=== PATIENT | male | born 1980 | race Caucasian/White ===

== ENCOUNTER 2019-09-14 15:18 | Emergency (ER) | payer SELFPAY ==
--- NOTE | 2019-09-14 16:04 | RAD REPORT ---
EXAM DESCRIPTION: RAD - Chest Pa And Lat (2 Views) - 09/14/2019 3:59 pm CLINICAL HISTORY: COUGH Chest pain. COMPARISON: No comparisons FINDINGS: The lungs are clear. The heart is normal in size. No displaced fractures. IMPRESSION: No acute or concerning finding suspected.
[2019-09-14 16:07] LABS: Absolute Lymphocytes (CBC) 1.6 K/uL (0.7-4.9); Basophils % 0.9 % (0-1.3); Hematocrit 40.2 % (39.6-49.0); Lymphocytes % 31.4 % (15.3-44.8); MPV 9.6 fL (7.6-11.3); RBC Red Blood Cell Count 4.28 M/uL (4.33-5.43)
[2019-09-14 16:10] LABS: Protime INR 0.97
[2019-09-14 16:34] LABS: ALT/SGPT 112 U/L (12-78); AST/SGOT 83 U/L (15-37); Albumin 3.4 g/dL (3.4-5.0); Alkaline Phosphatase 44 U/L (45-117); BUN Blood Urea Nitrogen 13 mg/dL (7-18); Bicarbonate 27 mmol/L (21-32); Bilirubin Direct 0.3 mg/dL (0-0.2); Bilirubin Total 0.8 mg/dL (0.2-1.0); Glucose Level 120 mg/dL (74-106); Potassium 3.5 mmol/L (3.5-5.1); Protein, Total 8.1 g/dL (6.4-8.2); Sodium Level 137 mmol/L (136-145)
[2019-09-14 16:59] LABS: Barbiturates NEGATIVE (NEGATIVE); Benzodiazepines NEGATIVE (NEGATIVE); Cocaine NEGATIVE (NEGATIVE); METHAMPHETAM POSITIVE (NEGATIVE); Methadone NEGATIVE (NEGATIVE); Opiates NEGATIVE (NEGATIVE); Phencyclidine NEGATIVE (NEGATIVE); THC Cannibis NEGATIVE (NEGATIVE)
--- NOTE | 2019-09-14 17:20 | ER ---
Nurse's Notes [facility] Name: Too Wick Age: 39 yrs Sex: Male : 1980 Arrival Date: 09/14/2019 Time: 15:21 Bed 30 Private MD: Diagnosis: Alcohol abuse;Methamphetamine use Presentation: 09/13 15:23 Chief complaint: Patient states: Been in Rehab for alcohol addiction, got out about a ca1 month ago. Last night drank, 3 swigs of whisky, reports hallucination. Sister states, "He said he called the seam feller and talked to them in person, but there were no seam feller". Also reports cough and congestion for couple of weeks. Denies fever. Coronavirus screen: The patient has NOT traveled to a country currently being monitored by the CDC within the last 14 days. The patient has NOT had contact with any known and/or suspected case of coronavirus. Ebola Screen: Patient negative for fever greater than or equal to 101.5 degrees Fahrenheit, and additional compatible Ebola Virus Disease symptoms Patient denies exposure to infectious person. Patient denies travel to an Ebola-affected area in the 21 days before illness onset. No symptoms or risks identified at this time. Initial Sepsis Screen: Does the patient meet any 2 criteria? No. Patient's initial sepsis screen is negative. Initial Sepsis Screen: Does the patient have a suspected source of infection? No. Patient's initial sepsis screen is negative. Risk Assessment: Do you want to hurt yourself or someone else? Patient reports no desire to harm self or others. Onset of symptoms was September 13, 2019. 15:23 Method Of Arrival: Ambulatory ca1 15:23 Acuity: SHAUNA 3 ca1 Triage Assessment: 15:33 General: Appears. ll1 Historical: - Allergies: 15:29 No Known Allergies; ca1 - Home Meds: 15:29 None [Active]; ca1 - PMHx: 15:29 None; ca1 - PSHx: 15:29 None; ca1 - Immunization history:: Adult Immunizations not up to date, Flu vaccine is not up to date. - Social history:: Smoking status: Patient reports the use of cigarette tobacco products, smokes one pack cigarettes per day. Screenin:32 Abuse screen: Denies threats or abuse. Nutritional screening: No deficits noted. ll1 Tuberculosis screening: No symptoms or risk factors identified. Fall Risk Secondary diagnosis (15 points) impaired mobility, Ambulatory Aid- None/Bed Rest/Nurse Assist (0 pts). Gait- Normal/Bed Rest/Wheelchair (0 pts) Total [place]leton Fall Scale indicates No Risk (0-24 pts). Assessment: 15:47 General: Appears in no apparent distress. Behavior is calm, cooperative. General: Was ll1 in rehab, got out and started to drink whiskey (3 shots). Family member reports hallucination, talking to people that weren't there. No hallucinations at this time. Calm, cooperative.. Pain: Denies pain. Neuro: No deficits noted. Cardiovascular: No deficits noted. Respiratory: Reports cough that is dry, Airway is patent Trachea midline Respiratory effort is even, unlabored, Respiratory pattern is regular, symmetrical, Breath sounds are clear bilaterally. Onset: The symptoms/episode began/occurred 2 weeks. GI: No deficits noted. : No deficits noted. 16:45 Reassessment: No changes from previously documented assessment. Patient and/or family ll1 updated on plan of care and expected duration. Pain level reassessed. Patient is alert, oriented x 3, equal unlabored respirations, skin warm/dry/pink. Vital Signs: 15:23 BP 121 / 80; Pulse 87; Resp 16 S; Temp 97.3(TE); Pulse Ox 95% on R/A; Weight 81.65 kg ca1 (R); Height 5 ft. 7 in. (170.18 cm) (R); Pain 0/10; 17:23 BP 117 / 81; Pulse 86; Resp 18; Temp 97.3; Pulse Ox 100% ; Pain 0/10; ll1 15:23 Body Mass Index 28.19 (81.65 kg, 170.18 cm) ca1 ED Course: 15:21 Patient arrived in ED. rg4 15:29 Triage completed. ca1 15:29 Arm band placed on right wrist. ca1 15:31 Kacy Rosen, SARIAH is Primary Nurse. ll1 15:31 Amilcar Espana PA is PHCP. cp 15:32 Amilcar Andersen MD is Attending Physician. cp 15:32 Patient has correct armband on for positive identification. ll1 15:35 No provider procedures requiring assistance completed. ll1 15:50 Initial lab(s) drawn, by me, sent to lab. Inserted saline lock: 20 gauge in left tm3 antecubital area, using aseptic technique. 15:59 XRAY Chest Pa And Lat (2 Views) In Process Unspecified. EDMS 17:34 IV discontinued, intact, bleeding controlled, No redness/swelling at site. Pressure ll1 dressing applied. Administered Medications: No medications were administered Outcome: 17:20 Discharge ordered by MD. michaela 17:24 Discharged to home ambulatory, with family. ll1 17:24 Condition: good 17:24 Discharge instructions given to patient, Instructed on discharge instructions, follow up and referral plans. Demonstrated understanding of instructions, follow-up care. 17:35 Patient left the ED. ll1 Signatures: Dispatcher [employer] EDMS Arsen Espinosai tm3 Amilcar Espana PA PA Abby Pinon rg4 Vi Stephenson, RN RN ca1 Kacy Rosen RN RN ll1
--- NOTE | 2019-09-14 17:20 | EDPHYS ---
Physician Documentation [facility] Name: Too Wick Age: 39 yrs Sex: Male : 1980 Arrival Date: 09/14/2019 Time: 15:21 Bed 30 Private MD: ED Physician Amilcar Andersen HPI: 09/13 15:45 This 39 yrs old Male presents to ER via Ambulatory with complaints of Alcohol cp Withdrawal, Cough. 15:45 The patient presents to the emergency department with psychosis, has experienced visual cp hallucinations, a history of substance abuse, Type: whisky. 15:45 Onset: The symptoms/episode began/occurred yesterday. Past psychiatric history: Prior cp diagnosis: addiction history, alcohol, Psychiatric medications include: none. Associated signs and symptoms: Pertinent positives; substance abuse, Pertinent negatives: abdominal pain, chest pain, headache, homicidal ideation, palpitations, suicide ideation, active hallucinations. Admits to using methamphetamine 4 days ago. 15:45 Patient also c/o cough, chest congestion for the past month. No fevers recorded. cp Historical: - Allergies: 15:29 No Known Allergies; ca1 - Home Meds: 15:29 None [Active]; ca1 - PMHx: 15:29 None; ca1 - PSHx: 15:29 None; ca1 - Immunization history:: Adult Immunizations not up to date, Flu vaccine is not up to date. - Social history:: Smoking status: Patient reports the use of cigarette tobacco products, smokes one pack cigarettes per day. ROS: 15:50 Constitutional: Negative for body aches, chills, fever, poor PO intake. cp 15:50 Eyes: Negative for injury, pain, redness, and discharge. cp 15:50 ENT: Negative for drainage from ear(s), ear pain, sore throat, difficulty swallowing, cp difficulty handling secretions. 15:50 Cardiovascular: Negative for chest pain, edema, palpitations. 15:50 Respiratory: Positive for cough, "sounds productive", Negative for shortness of breath, wheezing. 15:50 Abdomen/GI: Negative for abdominal pain, nausea, vomiting, and diarrhea, constipation, black/tarry stool, rectal bleeding. 15:50 Neuro: Negative for altered mental status, dizziness, gait disturbance, headache, seizure activity, weakness. 15:50 Psych: Positive for alcohol dependence, Negative for auditory hallucinations, visual hallucinations, homicidal ideation, suicide gesture, suicidal ideation. 15:50 : Negative for urinary symptoms. cp 15:50 Skin: Negative for rash. 15:50 All other systems are negative. Exam: 15:55 Constitutional: The patient appears in no acute distress, alert, awake, cp non-diaphoretic, non-toxic, well developed, well nourished. 15:55 Head/Face: Normocephalic, atraumatic. cp 15:55 Eyes: Pupils equal round and reactive to light, extra-ocular motions intact. Lids and cp lashes normal. Conjunctiva and sclera are non-icteric and not injected. Cornea within normal limits. Periorbital areas with no swelling, redness, or edema. ENT: Nares patent. No nasal discharge, no septal abnormalities noted. Tympanic membranes are normal and external auditory canals are clear. Oropharynx with no redness, swelling, or masses, exudates, or evidence of obstruction, uvula midline. Mucous membranes moist. Chest/axilla: Normal chest wall appearance and motion. Nontender with no deformity. No lesions are appreciated. Cardiovascular: Regular rate and rhythm with a normal S1 and S2. No gallops, murmurs, or rubs. Normal PMI, no JVD. No pulse deficits. Respiratory: Lungs have equal breath sounds bilaterally, clear to auscultation and percussion. No rales, rhonchi or wheezes noted. No increased work of breathing, no retractions or nasal flaring. Abdomen/GI: Soft, non-tender, with normal bowel sounds. No distension or tympany. No guarding or rebound. No evidence of tenderness throughout. Skin: Warm, dry with normal turgor. Normal color with no rashes, no lesions, and no evidence of cellulitis. Neuro: Awake and alert, GCS 15, oriented to person, place, time, and situation. Cranial nerves II-XII grossly intact. Motor strength 5/5 in all extremities. Sensory grossly intact. Cerebellar exam normal. Normal gait. 15:59 ECG was reviewed by the Attending Physician. cp Vital Signs: 15:23 BP 121 / 80; Pulse 87; Resp 16 S; Temp 97.3(TE); Pulse Ox 95% on R/A; Weight 81.65 kg ca1 (R); Height 5 ft. 7 in. (170.18 cm) (R); Pain 0/10; 17:23 BP 117 / 81; Pulse 86; Resp 18; Temp 97.3; Pulse Ox 100% ; Pain 0/10; ll1 15:23 Body Mass Index 28.19 (81.65 kg, 170.18 cm) ca1 MDM: 15:32 Patient medically screened. cp 16:21 Test interpretation: by ED physician or midlevel provider: plain radiologic studies, cp chest xray negative for infiltrates or focal pneumonia. 17:20 Data reviewed: vital signs, nurses notes, lab test result(s), EKG, radiologic studies, cp plain films. 17:20 Counseling: I had a detailed discussion with the patient and/or guardian regarding: the cp historical points, exam findings, and any diagnostic results supporting the discharge/admit diagnosis, lab results, radiology results, the need for outpatient follow up, alcohol and drug rehab, to return to the emergency department if symptoms worsen or persist or if there are any questions or concerns that arise at home. ED course: VSS. Patient denies any active suicidal or homicidal thoughts, denies any visual or auditory hallucinations. Labs, EKG and chest xray reviewed. Patient stable and will discharge to home. Brochure given on local alcohol and drug rehab treatment facility for patient to f/u. 09/13 15:42 Order name: Acetaminophen; Complete Time: 16:47 09/13 16:47 Interpretation: Reviewed. 09/13 15:42 Order name: Basic Metabolic Panel; Complete Time: 16:47 09/13 16:48 Interpretation: Normal except: GLUC 120. 09/13 15:42 Order name: CBC with Diff; Complete Time: 16:47 09/13 16:48 Interpretation: Normal except: RBC 4.28; RDW 11.4. 09/13 15:42 Order name: ETOH Level; Complete Time: 16:21 09/13 16:48 Interpretation: Reviewed. 09/13 15:42 Order name: Hepatic Function; Complete Time: 16:47 09/13 16:48 Interpretation: Normal except: AST 83; ALT 112; ALK 44; BILID 0.3; GLOB 4.7; A/G 0.7. 09/13 15:42 Order name: PT-INR; Complete Time: 16:47 09/13 15:42 Order name: Ptt, Activated; Complete Time: 16:47 09/13 15:42 Order name: Salicylate; Complete Time: 16:47 09/13 15:42 Order name: Urine Drug Screen; Complete Time: 16:59 09/13 16:59 Interpretation: Normal except: METHAMPHETAMINE POSITIVE. 09/13 15:42 Order name: EKG; Complete Time: 15:44 09/13 15:42 Order name: EKG - Nurse/Tech; Complete Time: 16:36 09/13 15:42 Order name: IV Saline Lock; Complete Time: 16:36 09/13 15:42 Order name: Labs collected and sent; Complete Time: 16:36 09/13 15:42 Order name: XRAY Chest Pa And Lat (2 Views); Complete Time: 16:21 09/13 16:21 Interpretation: Report reviewed. 09/13 15:42 Order name: Urine Dipstick-Ancillary (obtain specimen); Complete Time: 16:42 cp EC:59 Rate is 81 beats/min. Rhythm is regular. CT interval is normal. QRS interval is normal. cp QT interval is normal. Interpreted by me. Reviewed by me. Administered Medications: No medications were administered Disposition: 09/14 06:10 Co-signature as Attending Physician, Amilcar Andersen MD I agree with the assessment and jordan plan of care. Disposition: 09/14/19 17:20 Discharged to Home. Impression: Alcohol abuse, Methamphetamine use. - Condition is Stable. - Discharge Instructions: Alcohol Withdrawal, Alcohol Use Disorder, Alcohol Abuse and Nutrition, Stimulant Use Disorder-Methamphetamines, What You Need to Know About Alcohol Abuse and Dependence, Youth. - Medication Reconciliation Form, Thank You Letter, Antibiotic Education, Prescription Opioid Use form. - Follow up: Private Physician; When: 1 - 2 days; Reason: Worsening of condition. - Problem is an ongoing problem. - Symptoms have improved. Signatures: Dispatcher [employer] Amilcar Oneil MD MD cha Page, Corey, PA PA cp Vi Stephenson, RN RN ca1 Kacy Rosen RN RN ll1 Corrections: (The following items were deleted from the chart) 09/13 17:35 17:20 09/14/2019 17:20 Discharged to Home. Impression: Alcohol abuse; Methamphetamine ll1 use. Condition is Stable. Forms are Medication Reconciliation Form, Thank You Letter, Antibiotic Education, Prescription Opioid Use. Follow up: Private Physician; When: 1 - 2 days; Reason: Worsening of condition. Problem is an ongoing problem. Symptoms have improved. cp
[2019-09-14 17:43] VITALS: BP 121/80; TEMP 97.3; O2SAT 95
--- NOTE | 2019-09-14 22:59 | EKG ---
Test Date: 2019-09-14 Test Time: 15:50:18 [employer]: ARNOLD MEASUREMENT RESULTS: Intervals: Rate: 81 [place]: 120 QRSD: 96 QT: 390 QTc: 453 Hankins: P: 24 [place]: 120 QRS: 84 T: 43 INTERPRETIVE STATEMENTS: Normal sinus rhythm Normal ECG No previous ECG available for comparison Electronically Signed On 09-14-19 22:58:30 CDT by Luis Benavides
== END 2019-09-14 17:35 | disposition home or self-care (01) ==
LOC: ER 15:18
DX: F10.10 Alcohol abuse, uncomplicated (principal); F15.90 Other stimulant use, unspecified, uncomplicated; F17.210 Nicotine dependence, cigarettes, uncomplicated
CPT/HCPCS: 36415; 71046; 80048; 80076; 80307; 80320; 80329; 85025; 85610; 85730; 93005; 99283